=== PATIENT | female | born 1980 | race Caucasian/White ===

== ENCOUNTER 2023-12-22 22:39 | Observation (INO) | payer OTHER ==
[2023-12-22 22:56] VITALS: BMI 24.3
[2023-12-23 00:13] LABS: EOS % 1.7 % (0-4.5); HEMATOCRIT 20.2 % (32.4-45.2); LYMPH % 36.4 % (8-40); MCHC 28.1 g/dl (32.0-36.0); MEAN CELL VOLUME 57.4 fl (80-96); MONO % 10.8 % (3.8-10.2); NEUT % 49.1 % (42.8-82.8); PLATELET COUNT 446 10^3/uL (134-434); RBC 3.51 M/mm3 (3.60-5.2); RDW 19.6 % (11.6-15.6); WHITE BLOOD COUNT 5.5 K/mm3 (4.0-10.0)
[2023-12-23 00:17] LABS: MCH 16.2 pg (25.7-33.7)
[2023-12-23 00:19] LABS: HEMOGLOBIN 5.7 GM/dL (10.7-15.3); INR 1.06 (0.83-1.09); PROTHROMBIN TIME (PATIENT) 12.3 SEC (9.7-13.0)
[2023-12-23 00:35] LABS: POTASSIUM 3.5 mmol/L (3.5-5.1)
[2023-12-23 00:38] LABS: CALCIUM 9.2 mg/dL (8.5-10.1)
[2023-12-23 00:39] LABS: BLOOD UREA NITROGEN 5.4 mg/dL (7-18)
[2023-12-23 00:42] LABS: CREATININE 0.8 mg/dL (0.55-1.3)
[2023-12-23 00:43] LABS: BILIRUBIN,TOTAL 0.2 mg/dL (0.2-1); TOT PROT 7.7 g/dl (6.4-8.2)
[2023-12-23 04:55] LABS: ANISOCYTOSIS 3+; MACROCYTOSIS 0; OVALOCYTE 1+; ROULEAU 1+
[2023-12-23 06:16] VITALS: RESP 18
[2023-12-23 15:09] LABS: HEMOGLOBIN 8.8 GM/dL (10.7-15.3); MCHC 31.5 g/dl (32.0-36.0); MEAN CELL VOLUME 66.7 fl (80-96); PLATELET COUNT 352 10^3/uL (134-434); RBC 4.19 M/mm3 (3.60-5.2); RDW 29.5 % (11.6-15.6)
[2023-12-23 15:35] VITALS: TEMP 98.7
[2023-12-23 16:00] VITALS: BP 136/79; PULSE 79
== END 2023-12-23 16:44 | disposition home or self-care (01) ==
LOC: JER 22:39 → JERBED 23:01
PROVIDERS: ADMIT Internal Medicine; ATTEND Nurse Practitioner
PROC: 30233N1 Transfusion of Nonautologous Red Blood Cells into Peripheral Vein, Percutaneous Approach (ICD-10-PCS; principal; 2023-12-22)
DX: D50.9 Iron deficiency anemia, unspecified (principal); N92.0 Excessive and frequent menstruation with regular cycle; D25.9 Leiomyoma of uterus, unspecified; Z29.89 Encounter for other specified prophylactic measures
CPT/HCPCS: 36415; 36430; 80053; 84703; 85025; 85027; 85610; 85730; 86850; 86900; 86901; 86922; 93005; 93010; 99285-25; G0378; P9058